=== PATIENT | male | born 1970 | race Caucasian/White ===

== ENCOUNTER 2017-12-16 11:17 | Emergency (ER) | payer OTHER, SELFPAY ==
[2017-12-16 11:18] VITALS: BP 156/96; PULSE 98; RESP 15; TEMP 36.6; O2SAT 97; BMI 41.8
[2017-12-16 11:47] LABS: Absolute Lymphocyte Count 2.44 X10^3/ul (0.83-4.51); Absolute Neutrophil Count 4.7 X10^3/uL (2.0-7.7); Basophil# 0.08 X10^3/uL; Eosinophil# 0.23 X10^3/uL; Eosinophils% 2.8 % (0-5); Hematocrit 46.7 % (40-54); Hemoglobin 16.3 g/dl (13.0-16.5); Lymphocyte # 2.44 X10^3/ul (4.0); Lymphocyte % 29.6 % (19-41); Mean Corp Hgb Conc 34.9 g/gl (32-36); Mean Corpuscular Hgb 27.9 pg (27.0-32.0); Mean Corpuscular Volume 79.8 fL (80-94); Mean Platelet Vol. 12.2 fl (6.2-12.0); Monocyte# 0.63 X10^3/uL; Monocyte% 7.6 % (0-10); Neutrophil # 4.73 X10^3/uL (2.7-7.7); Neutrophil % 57.4 % (47-70); Platelet Count 188 K/mm3 (150-450); RBC Distribution Width CV 14.1 % (11.6-14.6); RBC Distribution Width SD 41.3 fl (35.1-43.9); Red Blood Count 5.85 M/mm3 (4.6-6.2); White Blood Count 8.2 K/mm3 (4.4-11.0)
--- NOTE | 2017-12-16 11:47 | ED.VISSUMM ---
- ER Visit Summary Date of Service: 12/16/17 Chief Complaint: Right flank pain History of Present Illness: The patient is a 47 M who presents with right flank pain. Started 2 days ago. The pain is in the right flank and does not radiate. He has had hematuria for 2 weeks. He has history of kidney stones in the past and also has a history of Crohn's disease. He does not take any medications for any of these. He denies any fevers. Physical Examination: Vital signs reviewed. HEENT exam unremarkable. Heart is regular rate and rhythm without murmurs. Lungs are clear to auscultation. Abdomen is soft with tenderness in the right flank area. extremities reveal no edema. Skin exam normal. Neurologic exam normal. Test Results: Labs are unremarkable except for glucose of 154. Urinalysis reveals blood. CAT scan reveals a 7 mm right UPJ stone with mild hydronephrosis Emergency Department Course and Treatment: She was given Toradol and Zofran. Upon reevaluation he was sleeping and states his pain is much better. Patient will be discharged with short course of [place], naproxen and Zofran ODT. He will be given urology follow-up Treatment Plan: [] Disposition: Discharge Impression: Right ureterolithiasis This note was generated with [employer] dictation software. It may contain incorrect words, spelling, and punctuation that were not noted in review of the chart prior to signing ED Disposition - Plan for ED Patient: Chief Complaint: Flank Pain
[2017-12-16 11:48] LABS: POSITIVE COUNT NO; POSITIVE DIFFERENTIAL NO; POSITIVE MORPHOLOGY NO
[2017-12-16] MEDS: 0.9% Normal Saline 1,000 ML 250 ML IV (11:55)
[2017-12-16] MEDS: Ketorolac 30 MG/ML Syringe IV (11:55)
[2017-12-16] MEDS: Ondansetron 4 MG/2 ML Vial IV (11:55)
[2017-12-16 12:00] LABS: Anion Gap 11 (5-15); BUN 12 mg/dL (7-18); BUN/Creat Ratio 14.4 RATIO (10-20); Calcium,Total 9.2 mg/dL (8.5-10.1); Chloride 105 mmol/L (98-107); Creatinine, Serum 0.84 mg/dL (0.70-1.30); EST Glomerular Filtration Rate 106 mL/min (>60); Est Glom Filt Rate - Afr Amer 128 mL/min (>60); Estimated Creatinine Clearance 118.28 ml/min; Glucose 154 mg/dL (74-106); Potassium 3.9 mmol/L (3.5-5.1); Sodium Level 141 mmol/L (136-145)
[2017-12-16 12:11] LABS: Mucous, Urine 0 SEEN /hpf (<or=2+); White Blood Cells 0 SEEN /hpf (0-5)
[2017-12-16 12:12] LABS: Color, Urine Yellow (Yellow); Glucose, Dipstick 100 mg/dl (Normal); Ketone-Dipstick 5 mg/dl (Negative); Leukocyte Esterase-Dipstick 25 /ul (Negative); Nitrite-Dipstick Negative (Negative); Occult Blood-Urine 250 /ul (Negative); Protein-Dipstick 100 mg/dl (Negative); Urine Bilirubin Dipstick 1 mg/dL (Negative); Urine Clarity Cloudy (Clear); Urine Urobilinogen 8 mg/dl (Normal)
[2017-12-16 12:24] LABS: Bacteria RARE /hpf (None Seen); Red Blood Cells-Urine 25-50 SEEN /hpf (0-5); Squamous Epithelial Cells - UA 0-5 SEEN /hpf (0-5)
--- NOTE | 2017-12-16 13:29 | DCINST.ED_ITS ---
ED Disposition - Plan for ED Patient: Disposition: Home or Assisted Living Chief Complaint: Flank Pain Instructions: ED Stone Renal W Colic Prescriptions: Hydrocodone Bitart/Apap 5-325 [[place] 5MG-325MG] 1 tab PO Q6H PRN PRN 3 Days #10 tab PRN Reason: Pain Naproxen [Naprosyn] 500 mg PO BID PRN #20 tab Referrals: [facility] Doctor,Out of [Primary Care Provider] -
[2017-12-16 13:43] VITALS: BP 148/89; PULSE 87; RESP 18; O2SAT 98
== END 2017-12-16 13:44 | disposition home or self-care (01) ==
PROVIDERS: Emergency Provider Emergency Medicine
DX: N13.2 Hydronephrosis with renal and ureteral calculous obstruction (principal); K50.90 Crohn's disease, unspecified, without complications; Z87.442 Personal history of urinary calculi; Z72.0 Tobacco use; Z79.899 Other long term (current) drug therapy
CPT/HCPCS: 74176; 80048; 81001; 85025; 96361; 96374; 96375; 99284; J7030; A4216; J2405

== ENCOUNTER → 2017-12-19 09:06 | Outpatient (CLI) | payer OTHER, SELFPAY ==
[2017-12-19 10:03] LABS: Hemoglobin 14.7 g/dl (13.0-16.5); Mean Corp Hgb Conc 34.2 g/gl (32-36); Mean Corpuscular Hgb 27.8 pg (27.0-32.0); Mean Corpuscular Volume 81.4 fL (80-94); Mean Platelet Vol. 11.9 fl (6.2-12.0); Platelet Count 152 K/mm3 (150-450); RBC Distribution Width CV 13.8 % (11.6-14.6); RBC Distribution Width SD 40.8 fl (35.1-43.9); Red Blood Count 5.28 M/mm3 (4.6-6.2); Scan Indicated on CBC? Y/N NO; White Blood Count 6.8 K/mm3 (4.4-11.0)
[2017-12-19 10:37] LABS: Anion Gap 12 (5-15); BUN 12 mg/dL (7-18); BUN/Creat Ratio 14.1 RATIO (10-20); Calcium,Total 8.8 mg/dL (8.5-10.1); Chloride 105 mmol/L (98-107); Creatinine, Serum 0.85 mg/dL (0.70-1.30); EST Glomerular Filtration Rate 103 mL/min (>60); Est Glom Filt Rate - Afr Amer 124 mL/min (>60); Glucose 188 mg/dL (74-106); Potassium 3.9 mmol/L (3.5-5.1); Sodium Level 139 mmol/L (136-145)
== END ==
PROVIDERS: Family Provider Family Medicine; PCP Family Medicine; Visit Provider Urology
DX: N20.0 Calculus of kidney (principal)
CPT/HCPCS: 36415; 80048; 85027; 93005

== ENCOUNTER → 2018-01-02 08:51 | Outpatient (CLI) | payer OTHER, SELFPAY ==
[2018-01-02 11:00] LABS: Anion Gap 8 (5-15); BUN 10 mg/dL (7-18); BUN/Creat Ratio 9.6 RATIO (10-20); Chloride 102 mmol/L (98-107); Creatinine, Serum 1.04 mg/dL (0.70-1.30); EST Glomerular Filtration Rate 82 mL/min (>60); Est Glom Filt Rate - Afr Amer 99 mL/min (>60); Glucose 313 mg/dL (74-106); Potassium 4.1 mmol/L (3.5-5.1); Sodium Level 136 mmol/L (136-145)
[2018-01-08 11:18] LABS: Aldosterone, Serum 3.1 ng/dL (0.0-30.0); Renin, Plasma 6.083 ng/mL/hr (0.167-5.380)
== END ==
PROVIDERS: Family Provider Family Medicine; PCP Family Medicine; Visit Provider Urology
DX: E27.9 Disorder of adrenal gland, unspecified (principal); N20.0 Calculus of kidney
CPT/HCPCS: 36415; 74018; 80048; 82088; 84244

== ENCOUNTER → 2018-01-10 07:00 | Outpatient (CLI) | payer OTHER, SELFPAY | PROVIDERS: Family Provider Family Medicine; PCP Family Medicine; Visit Provider Urology | DX: E27.9 Disorder of adrenal gland, unspecified (principal) | CPT/HCPCS: 74170; Q9967 ==

== ENCOUNTER → 2018-02-05 08:30 | Outpatient (CLI) | payer OTHER, SELFPAY ==
[2018-02-10 07:07] LABS: Cortisol, Urinary Free 11 ug/L (Undefined); Epinephrine, 24Ur 6 ug/24 hr (0-20); Metanephrine, Ur 53 ug/L (Undefined); Norepinephrine, 24Ur 139 ug/24 hr (0-135); Normetanephrines, Ur 363 ug/L (Undefined)
[2018-02-10 14:01] LABS: Cortisol, Free 24Ur 32 ug/24 hr (0-50); Dopamine, 24Ur 422 ug/24 hr (0-510); Dopamine, UR 143 ug/L (Undefined); Epinephrine, Ur 2 ug/L (Undefined); Metanephrines, 24Ur 156 ug/24 hr (45-290); Norepinephrine, Ur 47 ug/L (Undefined); Normetanephrines, 24Ur 1071 ug/24 hr (82-500)
== END ==
LOC: LAB 08:32 → LABSPEC 08:33
PROVIDERS: Family Provider Family Medicine; PCP Family Medicine; Referring Provider Urology; Visit Provider Urology
DX: E27.9 Disorder of adrenal gland, unspecified (principal)
CPT/HCPCS: 81050; 82384; 82530; 83835

== ENCOUNTER 2019-06-30 10:36 | Emergency (ER) | payer OTHER, SELFPAY ==
[2019-06-30 10:38] VITALS: BP 133/87; PULSE 95; RESP 17; TEMP 36.6; O2SAT 99; BMI 32.5
--- NOTE | 2019-06-30 11:26 | RAD_ITS ---
STUDY: X-RAY - PELVIS AND LEFT HIP REASON FOR EXAM: Male, 49 years old. ATRAUMATIC HIP PAIN SINCE MONDAY TECHNIQUE: 3 views of the pelvis and hip. COMPARISON: None. FINDINGS: There is a non-specific bowel gas pattern. Normal visualized soft tissue structures. Normal bilateral iliac wings, sacroiliac joints and visualized sacrum. Normal bilateral superior and inferior pubic rami. Normal pubic symphysis. Normal bilateral ischial tuberosities. Normal visualized femoral head. Normal acetabulum. Normal hip joint. RAD/HIP, UNI W/ Pelvis 2-3 Views IMPRESSION: Normal x-ray examination of the pelvis and hip. Electronically Signed: Jon Murray DO at 12:05 EST Tel [phone], Service support ,
--- NOTE | 2019-06-30 11:29 | ED.VISSUMM ---
- ER Visit Summary Date of Service: 06/30/19 Chief Complaint: Atraumatic left hip pain History of Present Illness: The patient is a 49 M has a history of hypertension and type 2 diabetes, Crohn's disease and prior kidney stones. States since Monday he has had atraumatic left hip pain. Denies any type of fall or trauma no prior hip history. No prior hip surgery. He had a recent URI since he has been feeling better. Says the pain was hip is much worse with walking. Physical Examination: Middle-aged male no distress vital signs stable afebrile. H EENT exam unremarkable. Neck nontender. No lymphadenopathy. Lungs clear to auscultation bilaterally. Heart regular rhythm no murmur. Abdomen soft nontender normal bowel sounds no peritoneal signs. Remedies moves all 4. Neurovascular intact. Left hip is not specifically tender. He is able do flexion extension. He is able do internal/external rotation. There is no signs of septic joint. Is not red, warm or swollen. There is no deformity. There is no shortening or angulation. The knee, lower leg, ankle and foot are nontender neurovascular intact. No edema. Dorsi plantarflexion intact. Normal motor strength and sensation. Right lower extremities unremarkable. Back nontender. No SI tenderness. Neurologically is awake and alert. Test Results: Left hip and pelvis x-ray read by myself kier operator 3 view shows no acute abnormality. Emergency Department Course and Treatment: Patient treated with 2 p.o. [place] for pain Patient doing well on repeat exam. Went over x-rays with both he and his . He knows he needs follow-up. He may need an MRI if pains not improving. Treatment Plan: Limited [place] for pain. Tylenol and Motrin as needed. Disposition: Discharge Impression: Acute left hip pain of uncertain etiology History of diabetes This note was generated with [employer] dictation software. It may contain incorrect words, spelling, and punctuation that were not noted in review of the chart prior to signing ED Disposition - Plan for ED Patient: Referrals: Lyle Grady MD [Primary Care Provider] -
[2019-06-30] MEDS: HYDROcodone Bitartrate/Apap 5/325 Tablet PO (11:31)
--- NOTE | 2019-06-30 12:38 | ED.DEP ---
ED Disposition - Plan for ED Patient: Disposition: Home or Assisted Living Prescriptions: Hydrocodone/Acetaminophen [[place] 5-325 Tablet] 1 ea PO Q4H PRN PRN #20 tab PRN Reason: Pain Or Fever Prescription Printed Referrals: Lyle Grady MD [Primary Care Provider] - 3-5 Days if not improving Additional Instructions: Ice to your hip and Motrin for pain and inflammation. [place] for more severe pain. Follow-up with your doctor if not improving. Your x-ray of your hip today was normal however there could be other abnormalities of the hip that are not seen on a plain x-ray and you may need an MRI if not improving. Return to the ER if you develop redness, swelling at the right hip or fever.
[2019-06-30 13:05] VITALS: BP 127/87; PULSE 90; RESP 17; O2SAT 97
== END 2019-06-30 13:05 | disposition home or self-care (01) ==
PROVIDERS: Emergency Provider Emergency Medicine; PCP Family Medicine
DX: M25.552 Pain in left hip (principal); E11.9 Type 2 diabetes mellitus without complications; I10 Essential (primary) hypertension; K50.90 Crohn's disease, unspecified, without complications; Z87.442 Personal history of urinary calculi; Z72.0 Tobacco use; Z79.84 Long term (current) use of oral hypoglycemic drugs; Z79.899 Other long term (current) drug therapy
CPT/HCPCS: 73502; 99283

== ENCOUNTER 2019-07-11 11:41 | Emergency (ER) | payer OTHER, SELFPAY ==
[2019-07-11 11:42] VITALS: BP 137/103; PULSE 79; RESP 16; TEMP 36.9; O2SAT 98; BMI 32.1
--- NOTE | 2019-07-11 12:42 | MRI_ITS ---
STUDY: MRI LEFT HIP REASON FOR EXAM: Male, 49 years old. severe and worsening left hip pain, no trauma TECHNIQUE: Standardized fat and water weighted pulse sequences were obtained in all 3 orthogonal planes. COMPARISON: X-ray 06/30/2019 FINDINGS: Normal hip joint without articular joint space narrowing. Normal acetabulum. Normal labrum. Normal femoral head. Normal femoral neck and intratrochanteric region. Normal gluteus minimus, medius and iliopsoas tendons and distal insertions. There is no trochanteric, iliopsoas or iliopectineal bursitis. Normal superior and inferior pubic rami. Normal pubic symphysis. Normal ischial tuberosity. Normal origin of the hamstring tendons. Normal visualized iliac wing, sacroiliac joint, and sacral ala. Normal visualized soft tissue structures of the pelvis. MRI/Lower Ext Joint Only (Routine) IMPRESSION: Normal MRI of the hip. Electronically Signed: Earnest Madsen MD at 16:13 EST Tel , Service support ,
[2019-07-11] MEDS: Ondansetron 4 MG/2 ML Vial IV (13:22)
[2019-07-11] MEDS: HYDROmorphone 1 MG/ML Syringe IV (13:24)
[2019-07-11] MEDS: Ketorolac 30 MG/ML Syringe IV (13:26)
[2019-07-11 13:43] LABS: Absolute Lymphocyte Count 2.14 X10^3/uL (0.83-4.51); Absolute Neutrophil Count 6.2 X10^3/uL (2.0-7.7); Basophil# 0.03 X10^3/uL; Basophil% 0.3 % (0-1); Eosinophil# 0.08 X10^3/uL; Eosinophils% 0.9 % (0-5); Hematocrit 48.1 % (40-54); Hemoglobin 15.8 g/dL (13.0-16.5); Lymphocyte # 2.14 X10^3/ul (4.0); Lymphocyte % 23.4 % (19-41); Mean Corp Hgb Conc 32.8 g/dL (32-36); Mean Corpuscular Hgb 25.6 pg (27.0-32.0); Mean Corpuscular Volume 78.1 fL (80-94); Mean Platelet Vol. 11.6 fl (6.2-12.0); Monocyte# 0.67 X10^3/uL; Monocyte% 7.3 % (0-10); NRBC Flagged by Analyzer 0 % (0-5); Neutrophil # 6.18 X10^3/uL (2.7-7.7); Neutrophil % 67.7 % (47-70); Platelet Count 199 K/mm3 (150-450); RBC Distribution Width CV 14.2 % (11.6-14.6); RBC Distribution Width SD 39.3 fl (35.1-43.9); Red Blood Count 6.16 M/mm3 (4.6-6.2); White Blood Count 9.1 K/mm3 (4.4-11.0)
[2019-07-11 13:52] VITALS: BP 127/84; PULSE 66; RESP 18; O2SAT 97
[2019-07-11 13:55] LABS: BUN 19 mg/dL (7-18); Creatinine, Serum 0.88 mg/dL (0.70-1.30); Glucose 101 mg/dL (74-106)
[2019-07-11 13:56] LABS: Anion Gap 5 (5-15); BUN/Creat Ratio 21.6 RATIO (10-20); Calcium,Total 9.8 mg/dL (8.5-10.1); Chloride 109 mmol/L (98-107); EST Glomerular Filtration Rate 99 mL/min (>60); Est Glom Filt Rate - Afr Amer 119 mL/min (>60); Estimated Creatinine Clearance 110.53 ml/min; Potassium 3.7 mmol/L (3.5-5.1); Sodium Level 140 mmol/L (136-145)
[2019-07-11 14:00] LABS: Erythrocyte Sedimentation Rate 16 mm/hr (0-15)
--- NOTE | 2019-07-11 16:14 | ED.DCSUM_ITS ---
- ER Visit Summary Date of Service: 07/11/19 Chief Complaint: Atraumatic left hip pain for 2 weeks History of Present Illness: The patient is a 49 M past medical history of diabetes, Crohn's disease and prior kidney stones. Patient was seen here within the last 2 weeks for atraumatic hip pain. At that time had negative x-ray. States he was treated with [place] and his pain was getting better. It is gotten worse in the last day or so. He denies any type of fall, trauma or injury. No fever or chills. No redness or swelling. He is never had any type of a hip problem in the past before the last 2 weeks. He is never had any type of hip surgery. Physical Examination: Middle-aged male complaining of pain. Vital signs are stable afebrile. He has a normal heart rate of 79. He is afebrile. H EENT exam unremarkable. Neck nontender no lymphadenopathy. Lungs clear to auscul tation bilaterally. Heart regular rhythm no murmur. Abdomen soft nontender normal bowel sounds no peritoneal signs. Extremities moves all 4. Neurovascular intact specifically the left hip there is no redness or warmth. No cellulitis. No swelling. No bruising or signs of trauma. There is no gross deformity to left hip. With movement of left hip either actively or passively complains of more pain. There is no signs of septic joint. No signs of dislocation or fracture. The thigh, left knee, left lower leg ankle and foot are nontender. There is no swelling. Calf is nontender. There is no cords. Left foot is neurovascular intact with normal dorsi and plantar flexion. Normal DP pulse. He is able to wiggle his toes. Has normal touch sensation. Back is nontender. Neurologically is awake and alert with no focal motor deficits. Test Results: CBC normal white count 9. Hemoglobin 15. Chemistries normal. Normal creatinine gap. Sed rate normal at 16. Due to the amount of pain the patient was having and having prior negative x-rays I did obtain an MRI of his left hip. The MRI was read by the radiologist as normal. I reviewed it myself. Emergency Department Course and Treatment: Patient treated with IV Dilaudid, Zofran and Toradol. Exam at 1618 patient is doing well. I went over all his test results. Explained to him all his results including his MRI were normal. Explained both he and his he may be having pain but I do not have a specific reason. It did not appear to be infectious, vascular or orthopedic. I explained that I would not continue to use narcotics for this. But be happy to write him for Toradol. Treatment Plan: Toradol for pain. Ice to the area. Follow-up with his primary care physician and/or Dr. Jarrod Mohan of orthopedics. Disposition: discharge Impression: Acute left atraumatic hip pain of uncertain etiology This note was generated with [employer] dictation software. It may contain incorrect words, spelling, and punctuation that were not noted in review of the chart prior to signing ED Disposition - Plan for ED Patient: Referrals: Lyle Grady MD [Primary Care Provider] -
--- NOTE | 2019-07-11 16:37 | ED.DEP ---
ED Disposition - Plan for ED Patient: Disposition: Home or Assisted Living Prescriptions: Ketorolac [Toradol] 10 mg PO Q6H #14 tab Prescription Printed Referrals: Lyle Grady MD [Primary Care Provider] - As Needed Jarrod Mohan MD [STAFF PHYSICIAN] - As soon as possible Additional Instructions: Toradol for pain. Follow-up with your doctor or the orthopedic surgeon Dr. Jarrod Mohan for further evaluation. I do not have a specific cause for your hip pain. Your MRI is normal. As is your blood work.
[2019-07-11 17:09] VITALS: BP 142/64; PULSE 70; RESP 16; O2SAT 98
== END 2019-07-11 17:09 | disposition home or self-care (01) ==
PROVIDERS: Emergency Provider Emergency Medicine; PCP Family Medicine
DX: M25.552 Pain in left hip (principal); E11.9 Type 2 diabetes mellitus without complications; K50.90 Crohn's disease, unspecified, without complications; Z87.442 Personal history of urinary calculi; Z72.0 Tobacco use; Z79.84 Long term (current) use of oral hypoglycemic drugs; Z79.899 Other long term (current) drug therapy
CPT/HCPCS: 73721; 80048; 85025; 85652; 96374; 96375; 99283; J7030; A4216; J2405

== ENCOUNTER → 2019-09-06 | Outpatient (CLI) | payer OTHER, SELFPAY ==
--- NOTE | 2019-09-06 16:36 | CT_ITS ---
STUDY: CT ABDOMEN WITH AND WITHOUT CONTRAST REASON FOR EXAM: Male, 49 years old. Other specified disorder of the kidney. RADIATION DOSAGE (If Supplied By Facility): CTDIvol = ( 29.26 ) mGy, DLP = ( 2155.50 ) mGycm TECHNIQUE: Transaxial images were obtained pre and post I.V. administration of IV 100mL Isovue-300, and without oral contrast. Sagittal and coronal images were reconstructed. Individualized dose optimization techniques were used for this CT. COMPARISON: CT of the abdomen, January 10, 2018. FINDINGS: The visualized lung bases are unremarkable. The visualized portions of the heart are within normal limits. Normal liver. There is a single 4 mm laminated gallstone in the gallbladder fundus. There is no inflammatory change. There is no biliary ductal dilatation or choledocholithiasis. Normal spleen. Normal pancreas. Normal right adrenal gland. There is a 3.1 x 2.1 x 2.9 cm low-attenuation mass in left adrenal gland suggesting adenoma. There is a fat density mass in the upper pole of the right kidney shows appearance of a defect in the cortex filled with fat. This measures approximately 1.4 x 1.4 x 1.0 cm there is no evidence of internal enhancement. Also seen within the right kidney are several cortical cysts unchanged from prior study. There are also nonobstructing calculi in the lower pole calyces unchanged in size and number. The largest measures 3 mm. Minimal cortical loss is seen in the right lower pole. There is no hydronephrosis. Normal visualized right ureter. There is a tiny calcification measuring 1 mm in the upper pole calyx of the left kidney. Stable calcifications are seen in the mid and lower pole. The largest measures 3 mm. There is a small stable renal cysts. There is no hydronephrosis. Normal visualized left ureter. Normal visualized stomach. Normal visualized small intestine. Normal visualized colon. The appendix is not included. There is diffuse atherosclerotic calcification of the abdominal aorta with elongation and tortuosity, but without a demonstrated aneurysm. Normal inferior vena cava. Normal retroperitoneum. Normal abdominal wall. Normal osseous structures. CT/Abdomen W/WO IV Contrast IMPRESSION: 1. Resolution of fatty infiltration of the liver seen on the previous examination. 2. Otherwise stable findings when compared to January 10, 2018. Electronically Signed: Alok Jerome DO at 16:27 EDT Tel [phone], Service support ,
[2019-09-06 16:50] LABS: CREATININE FINGERSTICK 0.8 mg/dL (0.70-1.30)
== END | disposition home or self-care (01) ==
LOC: MRI 16:35
PROVIDERS: PCP Family Medicine; Referring Provider Urology; Visit Provider Urology
DX: N28.89 Other specified disorders of kidney and ureter (principal)
CPT/HCPCS: 74170; Q9967

== ENCOUNTER 2021-05-02 09:11 | Inpatient (IN) | payer OTHER, SELFPAY ==
[2021-05-02] VITALS (15 sets, daily range): BP systolic 122–155; BP diastolic 83–122; PULSE 103–123; RESP 18–36; TEMP 36.7–38.4; O2SAT 88–96; BMI 38.2; BMI 37.8
--- NOTE | 2021-05-02 09:24 | EKG12_ITS ---
Test Reason : SOB Blood Pressure : / mmHG Vent. Rate : 122 BPM Atrial Rate : 122 BPM P-R Int : 136 ms QRS Dur : 078 ms QT Int : 300 ms P-R-T Axes : 020 -17 048 degrees QTc Int : 427 ms Sinus tachycardia Inferior infarct , age undetermined Abnormal ECG Confirmed by FLORIN HONG, KOBI ([id number]), advertising editor KARLA LUNA ([id number]) on 05/04/2021 9:55:03 AM Referred By: KRIS Confirmed By:KOBI CATHERINE MD
--- NOTE | 2021-05-02 09:24 | CT_ITS ---
STUDY: CTA CHEST REASON FOR EXAM: Male, 50 years old. pulmonary embolism RADIATION DOSAGE (If Supplied By Facility): CTDIvol = ( 11.47 ) mGy, DLP = ( 522.44 ) mGycm TECHNIQUE: The examination was performed with the intravenous administration of IV 100mL Isovue-370. Post-processing of the angiographic images was performed, with multiplanar reformation and 3D reconstruction. Individualized dose optimization techniques were used for this CT. COMPARISON: Chest x-ray earlier today FINDINGS: Normal enhancement of the main pulmonary artery and right and left pulmonary arteries. Normal enhancement of the bilateral peripheral pulmonary arteries. There is no demonstrated pulmonary embolism. Normal thoracic aorta and visualized great vessels. There is no demonstrated aortic dissection. Normal heart and pericardium. Normal mediastinum. Normal hilar regions. Normal visualized trachea and bronchi. The lungs are well expanded. Bilateral patchy groundglass opacities consistent with moderate subsegmental atelectasis or pneumonitis. Normal pleura. Elevated right hemidiaphragm. Normal chest wall structures. Normal osseous structures. Adenoma the left adrenal gland. CT/CTA Chest W/WO Contrast IMPRESSION: 1. No CT evidence of pulmonary embolism. 2. Moderate subsegmental atelectasis or pneumonitis. Commonly reported imaging atkins of Covid 19 pneumonia are present. Other processes such as influenza pneumonia and organizing pneumonia as can be seen in drug toxicity and connective tissue disease can cause a similar imaging pattern. Electronically Signed: Earnest Madsen MD at 11:37 EST Tel , Service support ,
--- NOTE | 2021-05-02 09:25 | EDS_ITS ---
HPI History of Present Illness Chief Complaint: Shortness of Breath Informant: patient and spouse/S.O. Narrative Narrative: 50-year-old male presenting to the emergency department the chief complaint of dyspnea. Patient began to experience fevers cough diarrhea chills fatigue 6 days ago. He is not Covid vaccinated and states that vaccines tend to set off his Crohn's disease. He is not currently on any therapy for Crohn's. He does note diarrhea. He notes decreased appetite. No rashes. No chest pain. He has been take Tylenol/Motrin for fever. states that she checked his pulse oximeter and was noted to be low this morning. He had been running about 90%. [facility] Medical History Acute Crohn's disease Diabetes Home Medications NK 05/02/21 [History Last Taken Unknown] Allergy/AdvReac Type Severity Reaction Status Date / Time No Known Allergies Allergy Verified 05/02/21 09:17 Surgical History Previous back surgery Social History (Updated 05/02/21 @ 09:[address] Lucien Murrieta DO) current gender identity: male Smoking Status: Current every day smoker tobacco type: cigarettes ROS ROS ED Constitutional Constitutional ED: Reports chills and fever(s); Denies weight loss Eyes Eyes: Denies change in vision or diplopia ENT ENT ED: Reports sore throat; Denies ear pain or rhinorrhea Cardiovascular Cardiovascular: Denies chest pain, orthopnea, palpitations or racing heartbeat Respiratory/Chest Respiratory/Chest: Reports cough, dyspnea and dyspnea on exertion; Denies orthopnea Gastrointestinal Gastrointestinal: Reports diarrhea and nausea; Denies abdominal pain or vomiting Genitourinary Genitourinary ED: Denies dysuria, hematuria or urinary frequency Musculoskeletal Musculoskeletal: Reports myalgias; Denies arthralgias Integumentary Denies abscess or rash Neurologic Neurologic: Reports headache(s); Denies weakness Psychiatric Psychiatric: Denies anxiety, depression, suicidal ideation or suicidal thoughts Endocrine Endocrinology: Denies polydipsia, polyphagia or polyuria Allergic/Immunologic Allergic/Immunologic ED: Denies mouth swelling, tongue swelling or urticaria EXAM Physical Exam Const Vital Signs: 05/02/21 09:12 05/02/21 09:14 05/02/21 09:29 Temperature 101.1 F H 101.1 F H Temperature Source Oral Oral Pulse Rate 123 H 122 H Respiratory Rate 26 H 26 H Respiratory Effort Respiratory Pattern Blood Pressure 155/122 H 155/122 H Blood Pressure Mean 133 133 Pulse Ox 88 88 94 Oxygen Delivery Method Room Air Nasal Cannula Nasal Cannula Oxygen Flow Rate (L/min) 3 05/02/21 09:30 05/02/21 09:39 05/02/21 10:00 Temperature Temperature Source Pulse Rate 120 H 118 H Respiratory Rate 27 H 36 H Respiratory Effort Short of Breath Respiratory Pattern Tachypnea Blood Pressure 132/93 H 142/92 H Blood Pressure Mean 106 108 Pulse Ox 94 93 Oxygen Delivery Method Nasal Cannula Nasal Cannula Nasal Cannula Oxygen Flow Rate (L/min) 3 3 3 05/02/21 11:14 05/02/21 11:19 Temperature Temperature Source Pulse Rate Respiratory Rate Respiratory Effort Respiratory Pattern Blood Pressure Blood Pressure Mean Pulse Ox 89 93 Oxygen Delivery Method Nasal Cannula Nasal Cannula Oxygen Flow Rate (L/min) 3 4 Positive well nourished and well developed General Appearance ED: well developed HEENT Reports normocephalic, head/scalp atraumatic, TM's clear and moist mucous membranes Negative for trauma Tympanic Membrane ED: Yes TM's clear Eyes PERRL and EOMs intact bilaterally Neck no lymphadenopathy, supple and no JVD Resp normal respiratory effort and clear to auscultation bilaterally Cardio regular rate and no murmurs Rate: tachycardic GI normal to inspection, nondistended, normoactive bowel sounds and non-tender Palpation: soft Back/Spine no CVA tenderness and normal ROM Extremity normal to inspection General Extremety ED: Negative for edema General Extremity: Negative for edema Neuro oriented x3 and CN's II-XII intact bilaterally Sensorium / Orientation: alert Motor Exam: strength 5/5 throughout Psych mental status grossly normal Mood & Affect: Negative for depressed or tearful Skin no rashes or lesions noted and no wounds MDM MDM MDM Narrative Medical decision making narrative: CTA of the chest was obtained which does not demonstrate any pulmonary embolism. Does demonstrate bilateral pneumonitis consistent with his COVID-19 diagnosis. He is currently requiring 4 L nasal cannula and is still tachypneic around 30. Patient received Tylenol for fever and a dose of Decadron. Plan is admission. Lab Data Attestation: I reviewed the patient's lab results. Labs: Laboratory Results - last 24 hr 05/02/21 05/02/21 05/02/21 09:20 09:20 09:20 WBC 6.6 RBC 6.43 H Hgb 17.5 H Hct 51.8 MCV 80.6 MCH 27.2 MCHC 33.8 RDW Std Deviation 39.8 RDW Coeff of Abdias 13.6 Plt Count 148 L MPV 11.6 Immature Gran % (Auto) 0.600 Neut % (Auto) 66.0 Lymph % (Auto) 23.6 Tensas % (Auto) 7.2 Eos % (Auto) 2.1 Baso % (Auto) 0.5 Absolute Neuts (auto) 4.3 Absolute Lymphs (auto) 1.55 Nucleated RBC % 0 Fibrinogen 688 H D-Dimer Quant (PE/DVT) 0.97 H* Sodium 134 L Potassium 3.6 Chloride 101 Carbon Dioxide 21.0 Anion Gap 12 BUN 16 Creatinine 1.01 Estim Creat Clear Calc 95.26 Est GFR (MDRD) Af Amer 101 Est GFR (MDRD) Non-Af 84 BUN/Creatinine Ratio 15.8 Glucose 135 H Lactic Acid Calcium 8.4 L Total Bilirubin 0.70 AST 55 H ALT 48 Alkaline Phosphatase 77 Lactate Dehydrogenase 317 H Total Creatine Kinase 139 Troponin I High Sens 13 C-React Prot Ext Range 80.40 H B-Natriuretic Peptide Total Protein 8.2 Albumin 3.5 Globulin 4.7 H Albumin/Globulin Ratio 0.7 L Procalcitonin 05/02/21 05/02/21 05/02/21 09:20 09:20 09:34 WBC RBC Hgb Hct MCV MCH MCHC RDW Std Deviation RDW Coeff of Abdias Plt Count MPV Immature Gran % (Auto) Neut % (Auto) Lymph % (Auto) [place] % (Auto) Eos % (Auto) Baso % (Auto) Absolute Neuts (auto) Absolute Lymphs (auto) Nucleated RBC % Fibrinogen D-Dimer Quant (PE/DVT) Sodium Potassium Chloride Carbon Dioxide Anion Gap BUN Creatinine Estim Creat Clear Calc Est GFR (MDRD) Af Amer Est GFR (MDRD) Non-Af BUN/Creatinine Ratio Glucose Lactic Acid 1.4 Calcium Total Bilirubin AST ALT Alkaline Phosphatase Lactate Dehydrogenase Total Creatine Kinase Troponin I High Sens C-React Prot Ext Range B-Natriuretic Peptide 13.0 Total Protein Albumin Globulin Albumin/Globulin Ratio Procalcitonin 0.16 H Radiography Diagnostic Testing: Clinical Impression(s) from Imaging Studies Chest CTA 05/02/21 09:24 IMPRESSION: 1. No CT evidence of pulmonary embolism. 2. Moderate subsegmental atelectasis or pneumonitis. Commonly reported imaging atkins of Covid 19 pneumonia are present. Other processes such as influenza pneumonia and organizing pneumonia as can be seen in drug toxicity and connective tissue disease can cause a similar imaging pattern. Electronically Signed: Earnest Madsen MD at 11:37 EST Tel , Service support , Chest X-Ray 05/02/21 09:28 IMPRESSION: Bilateral patchy pneumonia. Electronically Signed: Earnest Madsen MD at 10:44 EST Tel , Service support , EKG Initial EKG: Attestation: I personally reviewed and interpreted this EKG as follows: Comments: Sinus tachycardia with a ventricular rate of 122 bpm Discharge Plan Dx/Rx/DC Orders Clinical Impression: COVID-19, Acute hypoxemic respiratory failure due to COVID-19 Disposition Disposition: [facility]
--- NOTE | 2021-05-02 09:28 | RAD_ITS ---
STUDY: X-RAY CHEST REASON FOR EXAM: Male, 50 years old. cough TECHNIQUE: Single AP portable view of the chest. COMPARISON: None. FINDINGS: Patchy alveolar opacities in both lungs consistent with bilateral pneumonia. Elevated right hemidiaphragm. Normal size heart. Normal mediastinum and nanci. Normal visualized pulmonary arteries. Normal visualized aortic arch and descending thoracic aorta. Normal visualized thoracic spine. Normal visualized ribs, clavicles, and shoulders. There is no demonstrated abnormality of the visualized soft tissue structures of the upper abdomen. RAD/Chest 1 View (Portable) IMPRESSION: Bilateral patchy pneumonia. Electronically Signed: Earnest Madsen MD at 10:44 EST Tel , Service support ,
[2021-05-02] MEDS: Acetaminophen 500 MG Tablet 1000 MG PO (09:32)
[2021-05-02 09:35] LABS: Absolute Lymphocyte Count 1.55 X10^3/uL (0.83-4.51); Absolute Neutrophil Count 4.3 X10^3/uL (2.0-7.7); Basophil# 0.03 X10^3/uL; Basophil% 0.5 % (0-1); Eosinophil# 0.14 X10^3/uL; Eosinophils% 2.1 % (0-5); Hematocrit 51.8 % (40-54); Hemoglobin 17.5 g/dL (13.0-16.5); Lymphocyte # 1.55 X10^3/ul (0.83-4.51); Lymphocyte % 23.6 % (19-41); Mean Corp Hgb Conc 33.8 g/dL (32-36); Mean Corpuscular Hgb 27.2 pg (27.0-32.0); Mean Corpuscular Volume 80.6 fL (80-94); Mean Platelet Vol. 11.6 fl (6.2-12.0); Monocyte# 0.47 X10^3/uL; Monocyte% 7.2 % (0-10); NRBC Flagged by Analyzer 0 % (0-5); Neutrophil # 4.34 X10^3/uL (2.7-7.7); Platelet Count 148 K/mm3 (150-450); RBC Distribution Width CV 13.6 % (11.6-14.6); RBC Distribution Width SD 39.8 fl (35.1-43.9); Red Blood Count 6.43 M/mm3 (4.6-6.2); White Blood Count 6.6 K/mm3 (4.4-11.0)
[2021-05-02 09:52] LABS: D-Dimer Quantitative (DVT/PE) 0.97 FEU/ug/m (0.27-0.49)
[2021-05-02 09:54] LABS: ALB/GLOB Ratio 0.7 RATIO (0.9-2.4); AST(SGOT) 55 U/L (15-37); Alanine Aminotransfer ALT/SGPT 48 U/L (16-61); Albumin, Serum 3.5 g/dL (3.2-5.0); Alkaline Phosphatase 77 U/L (45-117); Anion Gap 12 (5-15); BUN 16 mg/dL (7-18); BUN/Creat Ratio 15.8 RATIO (10-20); CPK Total, Creatine Kinase 139 U/L (39-308); Calcium,Total 8.4 mg/dL (8.5-10.1); Chloride 101 mmol/L (98-107); Creatinine, Serum 1.01 mg/dL (0.70-1.30); EST Glomerular Filtration Rate 84 mL/min (>60); Est Glom Filt Rate - Afr Amer 101 mL/min (>60); Estimated Creatinine Clearance 95.26 ml/min; Globulin 4.7 g/dL (2.2-4.2); Glucose 135 mg/dL (74-106); LDH 317 U/L (87-241); Potassium 3.6 mmol/L (3.5-5.1); Protein, Total 8.2 g/dL (6.4-8.2); Sodium Level 134 mmol/L (136-145); Troponin-I HS 13 pg/mL (3.0-78.0)
[2021-05-02 09:59] LABS: Fibrinogen 688 mg/dl (203-444); Lactic Acid 1.4 mmol/L (0.4-1.9)
[2021-05-02 10:07] LABS: Procalcitonin 0.16 ng/mL (0.00-0.09)
--- NOTE | 2021-05-02 12:39 | PCM.HP.STD ---
HPI - General General Date of Admission: 05/02/21 Date of Service: 05/02/21 Chief Complaint: Shortness of breath ongoing for 6 days HPI Narrative ANNABELLE YANG, is a 50 M who presents with shortness of breath ongoing for 6 days. Patient is unvaccinated. He has a history of Crohn's disease, not on medications. He admits to feeling unwell, fatigue, subjective fevers, short of breath. His vitals in the ED were stable except for oxygen sat of 89% on room air that improved to 96% on 4 L. His admitting blood work was remarkable for hemoglobin of 17.5. His D-dimer was elevated. Creatinine was 1.01, BUN was 16. No LFTs derangements. His chest x-ray showed bilateral patchy pneumonia. CTA of the chest shows moderate subsegmental atelectasis or pneumonitis. [facility] Medical History Acute Crohn's disease Diabetes Home Medications NK 05/02/21 [History Last Taken Unknown] Allergy/AdvReac Type Severity Reaction Status Date / Time No Known Allergies Allergy Verified 05/02/21 09:17 Family History (Updated 05/02/21 @ 15:[address] Deysi Naik MD) Mother CAD (coronary artery disease) Father CAD (coronary artery disease) Surgical History Previous back surgery Social History (Updated 05/02/21 @ 15:[address] Deysi Naik MD) household members: spouse current gender identity: male Smoking Status: Current every day smoker tobacco type: cigarettes alcohol intake: current substance use type: does not use ROS ROS Narrative Constitutional: Reports: Malaise, Weakness, Fatigue, fever and chills. Denies: Night Sweats, Weight Change Eyes: Denies: Blurred vision, Cataracts, Conjunctivae Inflammation, Pain, Redness, Vision Change HEENT: Denies: Difficulty Hearing, Difficulty Swallowing, Head Aches, Hearing Changes, Sinus Congestion, Sinus Drainage Cardiovascular: Denies: Chest Pain, Orthopnea, Palpitations Respiratory: Admits to cough, Shortness of breath at rest, Sputum production Gastrointestinal: Denies: Abdominal Pain, Nausea, Vomiting Genitourinary: Denies: Dysuria Musculoskeletal: Denies: Joint Pain, Joint stiffness, Joint swelling, Joint Tenderness Skin: Denies: Rash, Wounds Neurological: Denies: Numbness, Tingling, Focal weakness Vital Signs Vital Signs Vital Signs: 05/02/21 09:12 05/02/21 09:14 05/02/21 09:29 Temperature 101.1 F H 101.1 F H Temperature Source Oral Oral Pulse Rate 123 H 122 H Respiratory Rate 26 H 26 H Respiratory Effort Respiratory Pattern Blood Pressure 155/122 H 155/122 H Blood Pressure Mean 133 133 Pulse Ox 88 88 94 Oxygen Delivery Method Room Air Nasal Cannula Nasal Cannula Oxygen Flow Rate (L/min) 3 05/02/21 09:30 05/02/21 09:39 05/02/21 10:00 Temperature Temperature Source Pulse Rate 120 H 118 H Respiratory Rate 27 H 36 H Respiratory Effort Short of Breath Respiratory Pattern Tachypnea Blood Pressure 132/93 H 142/92 H Blood Pressure Mean 106 108 Pulse Ox 94 93 Oxygen Delivery Method Nasal Cannula Nasal Cannula Nasal Cannula Oxygen Flow Rate (L/min) 3 3 3 05/02/21 11:00 05/02/21 11:14 05/02/21 11:19 Temperature 99.1 F Temperature Source Oral Pulse Rate 111 H Respiratory Rate 34 H Respiratory Effort Respiratory Pattern Blood Pressure 125/95 H Blood Pressure Mean 105 Pulse Ox 92 89 93 Oxygen Delivery Method Nasal Cannula Nasal Cannula Nasal Cannula Oxygen Flow Rate (L/min) 4 3 4 05/02/21 12:00 Temperature 98.5 F Temperature Source Oral Pulse Rate 104 H Respiratory Rate 27 H Respiratory Effort Respiratory Pattern Blood Pressure 122/83 H Blood Pressure Mean 96 Pulse Ox 92 Oxygen Delivery Method Nasal Cannula Oxygen Flow Rate (L/min) 4 Weight Weight: 124.6 kg Body Mass Index (BMI) 38.2 Physical Exam Narrative Physical exam: General: Alert, Oriented x3, Cooperative, No apparent distress, Well developed, on 4 L of oxygen HEENT: Atraumatic Oral: Moist Mucosa Neck: Supple Lungs: Diminished to auscultation Cardiovascular: HS I+II, regular, no murmurs Abdomen: Bowel Sounds Present, Soft, Non Tender Extremities: No edema Results Lab / Micro Data Result Diagrams: 05/02/21 09:20 05/02/21 09:20 Labs: Laboratory Results - last 24 hr 05/02/21 09:20: WBC 6.6, RBC 6.43 H, Hgb 17.5 H, Hct 51.8, MCV 80.6, MCH 27.2, MCHC 33.8, RDW Std Deviation 39.8, RDW Coeff of Abdias 13.6, Plt Count 148 L, MPV 11.6, Immature Gran % (Auto) 0.600, Neut % (Auto) 66.0, Lymph % (Auto) 23.6, [place] % (Auto) 7.2, Eos % (Auto) 2.1, Baso % (Auto) 0.5, Absolute Neuts (auto) 4.3, Absolute Lymphs (auto) 1.55, Nucleated RBC % 0 05/02/21 09:20: Fibrinogen 688 H, D-Dimer Quant (PE/DVT) 0.97 H* 05/02/21 09:20: Sodium 134 L, Potassium 3.6, Chloride 101, Carbon Dioxide 21.0, Anion Gap 12, BUN 16, Creatinine 1.01, Estim Creat Clear Calc 95.26, Est GFR (MDRD) Af Amer 101, Est GFR (MDRD) Non-Af 84, BUN/Creatinine Ratio 15.8, Glucose 135 H, Calcium 8.4 L, Total Bilirubin 0.70, AST 55 H, ALT 48, Alkaline Phosphatase 77, Lactate Dehydrogenase 317 H, Total Creatine Kinase 139, Troponin I High Sens 13, C-React Prot Ext Range 80.40 H, Total Protein 8.2, Albumin 3.5, Globulin 4.7 H, Albumin/Globulin Ratio 0.7 L 05/02/21 09:20: Lactic Acid 1.4 05/02/21 09:20: B-Natriuretic Peptide 13.0 05/02/21 09:34: Procalcitonin 0.16 H Micro: Microbiology 05/02/21 09:25 Nasal Secretion SARS-CoV-2 Antigen (Rapid) - Final SARS-CoV-2 (COVID 19) Radiology Impression Chest CTA 05/02/21 09:24 IMPRESSION: 1. No CT evidence of pulmonary embolism. 2. Moderate subsegmental atelectasis or pneumonitis. Commonly reported imaging atkins of Covid 19 pneumonia are present. Other processes such as influenza pneumonia and organizing pneumonia as can be seen in drug toxicity and connective tissue disease can cause a similar imaging pattern. Electronically Signed: Earnest Madsen MD at 11:37 EST Tel , Service support , Chest X-Ray 05/02/21 09:28 IMPRESSION: Bilateral patchy pneumonia. Electronically Signed: Earnest Madsen MD at 10:44 EST Tel , Service support , Assessment & Plan Assessment/Plan (1) JAY (obstructive sleep apnea): (2) Pneumonia due to severe acute respiratory syndrome coronavirus 2 (SARS-CoV-2): (3) Acute hypoxemic respiratory failure due to COVID-19: PLAN: 1. Acute hypoxic respiratory failure secondary to acute COVID-19 pneumonia Patient is unvaccinated; comes in with a 6-day symptoms of Covid Currently on 4 L of oxygen Chest x-ray and CT of the chest showed bilateral patchy infiltrates; negative for acute PE Started on IV Decadron, continue on Decadron and remdesivir Encourage use of incentive spirometer 2. JAY, on CPAP,? Compliance, continue same 3. Type II DM, not on medications, continue with insulin sliding scale Anticipate uncontrolled blood sugars with use of Decadron 4. Obesity, BMI 37.8, lifestyle modification recommended 5. DVT prophylaxis?Lovenox subcu I discussed and explained in details the various types of CODE STATUS-full code, DNR CCA, DNR CC. Patient chose to be full code. He wants all aggressive measures to keep him alive. Time spent discussing CODE STATUS 16 minutes Charges/Coding Visit Charges Inpatient E&M: 20978 Init Hosp L3 Procedures Hospitalists Procedures: 13731 Advncd Care Plan 30 Min
--- NOTE | 2021-05-02 13:40 | PCS.PANDOC ---
PANDEMIC DOCUMENTATION INITIATED: Date: 12/21/2020 Time: 190
[2021-05-02] MEDS: dexAMETHasone 10 MG/ML Vial 6 MG IV (16:38)
[2021-05-02] MEDS: Insulin Lispro 100 UNIT/ML INSULN.PEN SC ×2 (17:26→20:54)
[2021-05-02 17:35] LABS: Bedside Glucose 155 mg/dL (70-110)
[2021-05-02] MEDS: Enoxaparin 30 MG/0.3 ML Syringe SC (20:55)
[2021-05-02 21:50] LABS: Bedside Glucose 260 mg/dL (70-110)
[2021-05-03] VITALS (9 sets, daily range): BP systolic 106–133; BP diastolic 57–80; PULSE 100–113; RESP 18–22; TEMP 36.4–37.7; O2SAT 92–94
[2021-05-03 06:56] LABS: Absolute Lymphocyte Count 1.31 X10^3/uL (0.83-4.51); Absolute Neutrophil Count 3.8 X10^3/uL (2.0-7.7); Basophil# 0.02 X10^3/uL; Basophil% 0.4 % (0-1); Hematocrit 49.5 % (40-54); Hemoglobin 16.7 g/dL (13.0-16.5); Lymphocyte # 1.31 X10^3/ul (0.83-4.51); Lymphocyte % 23.4 % (19-41); Mean Corp Hgb Conc 33.7 g/dL (32-36); Mean Platelet Vol. 11.2 fl (6.2-12.0); Monocyte# 0.44 X10^3/uL; Monocyte% 7.8 % (0-10); NRBC Flagged by Analyzer 0 % (0-5); Neutrophil # 3.81 X10^3/uL (2.7-7.7); Neutrophil % 67.9 % (47-70); Platelet Count 130 K/mm3 (150-450); RBC Distribution Width CV 13.8 % (11.6-14.6); RBC Distribution Width SD 40.1 fl (35.1-43.9); Red Blood Count 6.19 M/mm3 (4.6-6.2); White Blood Count 5.6 K/mm3 (4.4-11.0)
[2021-05-03 07:16] LABS: ALB/GLOB Ratio 0.7 RATIO (0.9-2.4); AST(SGOT) 47 U/L (15-37); Alanine Aminotransfer ALT/SGPT 40 U/L (16-61); Albumin, Serum 3.2 g/dL (3.2-5.0); Alkaline Phosphatase 66 U/L (45-117); Anion Gap 6 (5-15); BUN 15 mg/dL (7-18); Calcium,Total 8.6 mg/dL (8.5-10.1); Chloride 102 mmol/L (98-107); Creatinine, Serum 0.84 mg/dL (0.70-1.30); EST Glomerular Filtration Rate 104 mL/min (>60); Est Glom Filt Rate - Afr Amer 126 mL/min (>60); Estimated Creatinine Clearance 114.54 ml/min; Globulin 4.6 g/dL (2.2-4.2); Glucose 141 mg/dL (74-106); Potassium 4.2 mmol/L (3.5-5.1); Protein, Total 7.8 g/dL (6.4-8.2); Sodium Level 136 mmol/L (136-145)
[2021-05-03 08:00] LABS: Bedside Glucose 122 mg/dL (70-110)
--- NOTE | 2021-05-03 10:40 | CASEMGMT ---
DENIZ GRANDE Assessment: Face to Face with pt for initial transition planning/care coordination assessment. DENIZ GRANDE introduced self and role at [facility], pt voices understanding and consents to assessment. Pt is A/O x4 and answers all questions appropriately at this time. Pt lying in bed with O2 on in no distress. Care providers, pharmacy, and demographics verified/updated. Admitting Dx: resp failure/COVID PCP: [facility] Specialists: Pt denies. Preferred Pharmacy: [facility] Insurance: [employer] Prescription Benefit: yes LW/HPOA: Pt denies having a LW/DPOA and denies need for info regarding AD. LNOK: [facility], Living Arrangements: Pt lives with and dtr in a split level house with 5-6 steps to enter. Pt reports he is I in ADL's and denies concerns at home. Transportation: Pt drives self and denies concerns with transportation. DME/HHC/SNF: Pt has a BGM at home with supplies (lancets and strips). Pt states he checks his blood sugars 2-3x/wk. Pt has a CPAP at home also. Pt has had HHC in the past but is unsure of which company he used. Pt denies SNF stays. Pt was first tested for COVID at [facility]. Pt is able to quarantine from his family using separate bedroom and bathroom. Provided pt with a local in network list of DME companies should pt need home O2, pt denies preference. Pt states no concerns with going home at time of dc. Pt states no further concerns/needs. CM to follow. Advised pt to ask CM if any further question/concerns/needs arise, voices understanding. Pt Goal: Home Plan: Home
[2021-05-03] MEDS: Lisinopril 10 MG Tablet PO (10:41)
[2021-05-03] MEDS: dexAMETHasone 10 MG/ML Vial 6 MG IV (10:41)
[2021-05-03] MEDS: hydroCHLOROthiazide 12.5mg 12.5 MG PO (10:41)
[2021-05-03] MEDS: Enoxaparin 30 MG/0.3 ML Syringe SC ×2 (10:41→20:56)
[2021-05-03 11:21] LABS: Bedside Glucose 145 mg/dL (70-110)
--- NOTE | 2021-05-03 12:55 | PCM.PN.HOSP ---
Subjective Subjective Patient is a 50-year-old gentleman unvaccinated against COVID-19 presented with progressive shortness of breath and fever and persistent cough. Diagnosed with acute hypoxic respiratory failure secondary to COVID-19 pneumonia Objective Data Objective Data Vital Signs: Vital Signs Temp Pulse Resp BP Pulse Ox 99.8 F H 113 H 20 H 133/80 H 92 05/03/21 10:35 05/03/21 10:35 05/03/21 10:35 05/03/21 10:35 05/03/21 10:35 Oxygen Flow Rate (L/min) 4 Oxygen Delivery Method Nasal Cannula Weight: 122.334 kg Body Mass Index (BMI) 37.8 Intake & Output: Intake and Output for Last 24 Hours 05/01/21 05/02/21 05/03/21 23:59 23:59 23:59 Intake Total 595 / 595 650 / 650 Balance 595 / 595 650 / 650 Lab / Micro Data Result Diagrams: 05/03/21 06:28 05/03/21 06:28 Labs: Laboratory Results - last 24 hr 05/02/21 17:25: POC Glucose 155 H 05/02/21 20:53: POC Glucose 260 H 05/03/21 06:28: WBC 5.6, RBC 6.19, Hgb 16.7 H, Hct 49.5, MCV 80.0, MCH 27.0, MCHC 33.7, RDW Std Deviation 40.1, RDW Coeff of Abdias 13.8, Plt Count 130 L, MPV 11.2, Immature Gran % (Auto) 0.500, Neut % (Auto) 67.9, Lymph % (Auto) 23.4, [place] % (Auto) 7.8, Eos % (Auto) 0.0, Baso % (Auto) 0.4, Absolute Neuts (auto) 3.8, Absolute Lymphs (auto) 1.31, Nucleated RBC % 0 05/03/21 06:28: Sodium 136, Potassium 4.2, Chloride 102, Carbon Dioxide 28.0, Anion Gap 6, BUN 15, Creatinine 0.84, Estim Creat Clear Calc 114.54, Est GFR (MDRD) Af Amer 126, Est GFR (MDRD) Non-Af 104, BUN/Creatinine Ratio 18.0, Glucose 141 H, Calcium 8.6, Total Bilirubin 0.50, AST 47 H, ALT 40, Alkaline Phosphatase 66, Total Protein 7.8, Albumin 3.2, Globulin 4.6 H, Albumin/Globulin Ratio 0.7 L 05/03/21 07:55: POC Glucose 122 H 05/03/21 11:11: POC Glucose 145 H Micro: Microbiology 05/02/21 16:04 Urine, Clean Catch Streptococcus pneumoniae Antigen (M - Final 05/02/21 16:04 Urine, Clean Catch Legionella Antigen - Final 05/02/21 14:35 Mucosa - Nose Respiratory Panel (PCR) - Final 05/02/21 09:25 Nasal Secretion SARS-CoV-2 Antigen (Rapid) - Final SARS-CoV-2 (COVID 19) Physical Exam Narrative GENERAL: cooperative HEENT: Atraumatic; EYES; Anicteric, Normal Conjunctiva NECK; supple, normal thyroid, RESPIRATORY: Diminished to auscultation CARDIOVASCULAR: Regular S1 S2, GI: soft, normoactive bowel sounds, : No Renal angle tenderness; EXTREMITIES: No edema, no clubbing, MUSCULOSKELETAL: no muscle waisting NEURO: Awake; no lateralizing signs. SKIN: No Rash PSYCH; Flat affect Assessment & Plan Assessment/Plan (1) JAY (obstructive sleep apnea): (2) Pneumonia due to severe acute respiratory syndrome coronavirus 2 (SARS-CoV-2): (3) Acute hypoxemic respiratory failure due to COVID-19: PLAN: Patient is a 50-year-old gentleman unvaccinated against COVID-19 presented with progressive shortness of breath and fever and persistent cough. Diagnosed with acute hypoxic respiratory failure secondary to COVID-19 pneumonia 1. Acute hypoxic respiratory failure ?Secondary to COVID-19 pneumonia. Patient has been admitted to regular nursing floor managed with remdesivir and Decadron in addition to supplemental oxygen titrated to keep saturation greater than 90. Also did encourage the use of incentive spirometry. Patient progress being monitored with continuous pulse oximetry 2. Diabetes mellitus type 2 ?Currently diet managed patient was placed on Accu-Cheks before meals and at bedtime with sliding scale coverage 3. Obstructive sleep apnea ?CPAP at night 4. Class II obesity with BMI of 37.6 ?Weight loss advised 5. Hypertension - Blood pressure controlled, home medications continued with dose adjustment as needed 6. DVT prophylaxis ?SC Lovenox Charges/Coding Visit Charges Inpatient E&M: 89053 Subs Hosp L3
[2021-05-03] MEDS: Insulin Lispro 100 UNIT/ML INSULN.PEN SC ×2 (16:25→20:56)
[2021-05-03 16:46] LABS: Bedside Glucose 217 mg/dL (70-110)
[2021-05-03 17:21] LABS: Bedside Glucose 142 mg/dL (70-110)
[2021-05-03 21:25] LABS: Bedside Glucose 224 mg/dL (70-110)
--- NOTE | 2021-05-03 22:35 | CPS ---
4 l/m bleed added to pt home unit
[2021-05-04] VITALS (7 sets, daily range): BP systolic 118–131; BP diastolic 70–80; PULSE 74–99; RESP 18–20; TEMP 36.8–37.1; O2SAT 84–97
[2021-05-04] MEDS: Insulin Lispro 100 UNIT/ML INSULN.PEN SC ×2 (06:06→11:29)
[2021-05-04 06:16] LABS: Bedside Glucose 158 mg/dL (70-110)
--- NOTE | 2021-05-04 07:48 | PCM.PN.HOSP ---
Subjective Subjective Patient seen still remains on supplemental oxygen currently on 4 L saturating at 93%. Plan is for patient to be assessed for possible discharge with a 6-minute walk. Goal is to keep oxygen saturation above 89% and below 6 L flow per minute. Patient did express the desire to undergo the 6-minute walk with a goal of being discharged Objective Data Objective Data Vital Signs: Vital Signs Temp Pulse Resp BP Pulse Ox 98.8 F 91 18 131/70 H 93 05/04/21 01:58 05/04/21 01:58 05/04/21 01:58 05/04/21 01:58 05/04/21 07:33 Oxygen Flow Rate (L/min) 4 Oxygen Delivery Method Nasal Cannula Weight: 122.515 kg Body Mass Index (BMI) 37.8 Intake & Output: Intake and Output for Last 24 Hours 05/02/21 05/03/21 05/04/21 23:59 23:59 23:59 Intake Total 595 / 595 1250 / 1250 Balance 595 / 595 1250 / 1250 Lab / Micro Data Result Diagrams: 05/04/21 07:25 05/04/21 07:25 Labs: Laboratory Results - last 24 hr 05/03/21 06:02: POC Glucose 142 H 05/03/21 07:55: POC Glucose 122 H 05/03/21 11:11: POC Glucose 145 H 05/03/21 16:20: POC Glucose 217 H 05/03/21 20:52: POC Glucose 224 H 05/04/21 06:06: POC Glucose 158 H Micro: Microbiology 05/02/21 16:04 Urine, Clean Catch Streptococcus pneumoniae Antigen (M - Final 05/02/21 16:04 Urine, Clean Catch Legionella Antigen - Final 05/02/21 14:35 Mucosa - Nose Respiratory Panel (PCR) - Final 05/02/21 09:25 Nasal Secretion SARS-CoV-2 Antigen (Rapid) - Final SARS-CoV-2 (COVID 19) Physical Exam Narrative GENERAL: cooperative HEENT: Atraumatic; EYES; Anicteric, Normal Conjunctiva NECK; supple, normal thyroid, RESPIRATORY: Diminished to auscultation CARDIOVASCULAR: Regular S1 S2, GI: soft, normoactive bowel sounds, : No Renal angle tenderness; EXTREMITIES: No edema, no clubbing, MUSCULOSKELETAL: no muscle waisting NEURO: Awake; no lateralizing signs. SKIN: No Rash PSYCH; Flat affect Assessment & Plan Assessment/Plan (1) JAY (obstructive sleep apnea): (2) Pneumonia due to severe acute respiratory syndrome coronavirus 2 (SARS-CoV-2): (3) Acute hypoxemic respiratory failure due to COVID-19: PLAN: Patient is a 50-year-old gentleman unvaccinated against COVID-19 presented with progressive shortness of breath and fever and persistent cough. Diagnosed with acute hypoxic respiratory failure secondary to COVID-19 pneumonia 1. Acute hypoxic respiratory failure ?Secondary to COVID-19 pneumonia. Patient has been admitted to regular nursing floor managed with remdesivir and Decadron in addition to supplemental oxygen titrated to keep saturation greater than 90. Also did encourage the use of incentive spirometry. Patient progress being monitored with continuous pulse oximetry -05/04/2021; Patient seen still remains on supplemental oxygen currently on 4 L saturating at 93%. Plan is for patient to be assessed for possible discharge with a 6-minute walk. Goal is to keep oxygen saturation above 89% and below 6 L flow per minute. Patient did express the desire to undergo the 6-minute walk with a goal of being discharge 2. Diabetes mellitus type 2 ?Currently diet managed patient was placed on Accu-Cheks before meals and at bedtime with sliding scale coverage 3. Obstructive sleep apnea ?CPAP at night 4. Class II obesity with BMI of 37.6 ?Weight loss advised 5. Hypertension - Blood pressure controlled, home medications continued with dose adjustment as needed 6. DVT prophylaxis ?SC Lovenox Charges/Coding Visit Charges Inpatient E&M: 85813 Subs Hosp L2
[2021-05-04 08:01] LABS: Absolute Lymphocyte Count 1.33 X10^3/uL (0.83-4.51); Absolute Neutrophil Count 3.4 X10^3/uL (2.0-7.7); Basophil# 0.02 X10^3/uL; Basophil% 0.4 % (0-1); Hematocrit 45.9 % (40-54); Hemoglobin 15.2 g/dL (13.0-16.5); Lymphocyte # 1.33 X10^3/ul (0.83-4.51); Lymphocyte % 25.1 % (19-41); Mean Corp Hgb Conc 33.1 g/dL (32-36); Mean Corpuscular Hgb 26.7 pg (27.0-32.0); Mean Corpuscular Volume 80.7 fL (80-94); Mean Platelet Vol. 11.3 fl (6.2-12.0); Monocyte# 0.48 X10^3/uL; Monocyte% 9.1 % (0-10); NRBC Flagged by Analyzer 0 % (0-5); Neutrophil # 3.44 X10^3/uL (2.7-7.7); Neutrophil % 64.8 % (47-70); Platelet Count 154 K/mm3 (150-450); RBC Distribution Width CV 13.7 % (11.6-14.6); RBC Distribution Width SD 40.2 fl (35.1-43.9); Red Blood Count 5.69 M/mm3 (4.6-6.2); White Blood Count 5.3 K/mm3 (4.4-11.0)
[2021-05-04 08:36] LABS: ALB/GLOB Ratio 0.7 RATIO (0.9-2.4); AST(SGOT) 49 U/L (15-37); Alanine Aminotransfer ALT/SGPT 37 U/L (16-61); Albumin, Serum 2.9 g/dL (3.2-5.0); Alkaline Phosphatase 59 U/L (45-117); Anion Gap 8 (5-15); BUN 23 mg/dL (7-18); BUN/Creat Ratio 31.4 RATIO (10-20); Calcium,Total 8.7 mg/dL (8.5-10.1); Chloride 102 mmol/L (98-107); Creatinine, Serum 0.73 mg/dL (0.70-1.30); EST Glomerular Filtration Rate 121 mL/min (>60); Est Glom Filt Rate - Afr Amer 147 mL/min (>60); Globulin 4.3 g/dL (2.2-4.2); Glucose 141 mg/dL (74-106); Magnesium 2.3 mg/dL (1.6-2.6); Potassium 3.7 mmol/L (3.5-5.1); Protein, Total 7.2 g/dL (6.4-8.2); Sodium Level 135 mmol/L (136-145)
[2021-05-04] MEDS: Psyllium 1 PACKET PO (10:13)
[2021-05-04] MEDS: Enoxaparin 30 MG/0.3 ML Syringe SC (10:13)
[2021-05-04] MEDS: Lisinopril 10 MG Tablet PO (10:14)
[2021-05-04] MEDS: dexAMETHasone 10 MG/ML Vial 6 MG IV (10:14)
[2021-05-04] MEDS: hydroCHLOROthiazide 12.5mg 12.5 MG PO (10:14)
[2021-05-04 11:36] LABS: Bedside Glucose 181 mg/dL (70-110)
--- NOTE | 2021-05-04 13:12 | PCM.DC.SUM ---
Providers Date of Admission: 05/02/21 Primary Care Physician: Dr. Lyle Grady MD Reason For Visit: RESP FAILURE/COVID Diagnosis Discharge Diagnosis (1) JAY (obstructive sleep apnea): Status: Acute Code(s): G47.33 - Obstructive sleep apnea (adult) (pediatric) (2) Pneumonia due to severe acute respiratory syndrome coronavirus 2 (SARS-CoV-2): Status: Acute Code(s): U07.1 - COVID-19; J12.82 - Pneumonia due to coronavirus disease 2019 (3) Acute hypoxemic respiratory failure due to COVID-19: Status: Acute Code(s): U07.1 - COVID-19; J96.01 - Acute respiratory failure with hypoxia Medications at Discharge Home Medications lisinopril-hydrochlorothiazide 1 tab DAILY 05/02/21 cefdinir 300 mg PO BID #10 cap 05/04/21 dexamethasone [Decadron] 6 mg PO DAILY #7 tab 05/04/21 rivaroxaban [Xarelto] 10 mg PO DAILY #35 tab 05/04/21 Hospital Course Summary of Care Provided Minutes Spent on Discharge: 35 Hospital Course: Patient is a 50-year-old gentleman unvaccinated against COVID-19 presented with progressive shortness of breath and fever and persistent cough. Diagnosed with acute hypoxic respiratory failure secondary to COVID-19 pneumonia 1. Acute hypoxic respiratory failure ?Secondary to COVID-19 pneumonia. Patient has been admitted to regular nursing floor managed with remdesivir and Decadron in addition to supplemental oxygen titrated to keep saturation greater than 90. Also did encourage the use of incentive spirometry. Patient progress being monitored with continuous pulse oximetry -05/04/2021; Patient seen still remains on supplemental oxygen currently on 4 L saturating at 93%. Plan is for patient to be assessed for possible discharge with a 6-minute walk. Goal is to keep oxygen saturation above 89% and below 6 L flow per minute. Patient did express the desire to undergo the 6-minute walk with a goal of being discharge -Patient was assessed for oxygen he did require up to 4 L with ambulation. Prescription was written for oxygen on discharge. He will need portability since he is active both at home as well as in the community. Prescription was also written for cefdinir as well as Decadron on discharge. Patient was instructed to return to the ED if his respiratory status deteriorated. 2. Diabetes mellitus type 2 ?Currently diet managed patient was placed on Accu-Cheks before meals and at bedtime with sliding scale coverage 3. Obstructive sleep apnea ?CPAP at night 4. Class II obesity with BMI of 37.6 ?Weight loss advised 5. Hypertension - Blood pressure controlled, home medications continued with dose adjustment as needed 6. DVT prophylaxis ?SC Lovenox -Prescription written for Xarelto 10 mg p.o. daily for 35 days Physical Exam Narrative GENERAL: cooperative HEENT: Atraumatic; EYES; Anicteric, Normal Conjunctiva NECK; supple, normal thyroid, RESPIRATORY: Diminished to auscultation CARDIOVASCULAR: Regular S1 S2, GI: soft, normoactive bowel sounds, : No Renal angle tenderness; EXTREMITIES: No edema, no clubbing, MUSCULOSKELETAL: no muscle waisting NEURO: Awake; no lateralizing signs. SKIN: No Rash PSYCH; Flat affect Weight / BMI Weight Weight: 122.515 kg Body Mass Index (BMI) 37.8 ABG / Lab / Microbiology Data Result Diagrams: 05/04/21 07:25 05/04/21 07:25 Laboratory: Laboratory Results - last 24 hr 05/03/21 06:02: POC Glucose 142 H 05/03/21 16:20: POC Glucose 217 H 05/03/21 20:52: POC Glucose 224 H 05/04/21 06:06: POC Glucose 158 H 05/04/21 07:25: WBC 5.3, RBC 5.69, Hgb 15.2, Hct 45.9, MCV 80.7, MCH 26.7 L, MCHC 33.1, RDW Std Deviation 40.2, RDW Coeff of Abdias 13.7, Plt Count 154, MPV 11.3, Immature Gran % (Auto) 0.600, Neut % (Auto) 64.8, Lymph % (Auto) 25.1, [place] % (Auto) 9.1, Eos % (Auto) 0.0, Baso % (Auto) 0.4, Absolute Neuts (auto) 3.4, Absolute Lymphs (auto) 1.33, Nucleated RBC % 0 05/04/21 07:25: Sodium 135 L, Potassium 3.7, Chloride 102, Carbon Dioxide 25.0, Anion Gap 8, BUN 23 H, Creatinine 0.73, Estim Creat Clear Calc 131.80, Est GFR (MDRD) Af Amer 147, Est GFR (MDRD) Non-Af 121, BUN/Creatinine Ratio 31.4 H, Glucose 141 H, Calcium 8.7, Magnesium 2.3, Total Bilirubin 0.50, AST 49 H, ALT 37, Alkaline Phosphatase 59, Total Protein 7.2, Albumin 2.9 L, Globulin 4.3 H, Albumin/Globulin Ratio 0.7 L 05/04/21 11:28: POC Glucose 181 H Microbiology: Microbiology 05/02/21 09:34 Blood Culture (Wb) - Left Forearm Blood Culture - Preliminary No growth in 48 hours. 05/02/21 09:20 Blood Culture (Wb) - Anticubital Right Blood Culture - Preliminary No growth in 48 hours. 05/02/21 16:04 Urine, Clean Catch Streptococcus pneumoniae Antigen (M - Final 05/02/21 16:04 Urine, Clean Catch Legionella Antigen - Final 05/02/21 14:35 Mucosa - Nose Respiratory Panel (PCR) - Final 05/02/21 09:25 Nasal Secretion SARS-CoV-2 Antigen (Rapid) - Final SARS-CoV-2 (COVID 19) D/C Instructions Discharge Diet: No restrictions Discharge Activity: Return to Normal Activity Call your doctor if you observe: Fever of 101 or Higher, Shortness of breath, Fainting spells and Chest pain Meaningful Use Info Meaningful Use Diagnoses (Choose all that apply): None applicable Discharge Plan Admission Admit Date/Time: 05/02/21 12:10 Attending Provider: Richard Breen Primary Care Provider: Lyle Grady Instructions Patient Instructions: Coronavirus Disease 2019 (COVID-19): Overview, Coronavirus Disease 2019 (COVID-19): Caring for Yourself or Others Discharge Orders/Prescriptions Prescriptions: New cefdinir 300 mg capsule 300 mg PO BID Qty: 10 RF: 0 dexamethasone [Decadron] 6 mg tablet 6 mg PO DAILY Qty: 7 RF: 0 Xarelto 10 mg tablet 10 mg PO DAILY Qty: 35 RF: 0 Continued lisinopril-hydrochlorothiazide 10-12.5 mg tablet 1 tab DAILY RF: 0 Referrals / Follow Up: Lyle Grady MD [Primary Care Provider] - Within 2 Weeks Disposition Disposition (needs filled in before D/C Order can be placed): Home, Self Care Charges/Coding Visit Charges Inpatient E&M: 04988 Disch Hosp
--- NOTE | 2021-05-04 14:01 | CASEMGMT ---
Pt qualifies for home O2, [place] [facility] [facility], spoke with Julee she is aware and portable tank taken from stock.
== END 2021-05-04 20:30 | disposition home or self-care (01) | DRG 177 ==
LOC: ED 12:01 → MS3 12:43
PROVIDERS: Admitting Provider Internal Medicine; Emergency Provider Emergency Medicine; PCP Family Medicine; Visit Provider Internal Medicine
DX: U07.1 COVID-19 (principal); J12.82 Pneumonia due to coronavirus disease 2019; J96.01 Acute respiratory failure with hypoxia; I10 Essential (primary) hypertension; E11.9 Type 2 diabetes mellitus without complications; G47.33 Obstructive sleep apnea (adult) (pediatric); F17.210 Nicotine dependence, cigarettes, uncomplicated; E66.9 Obesity, unspecified; Z68.37 Body mass index [BMI] 37.0-37.9, adult; Z79.899 Other long term (current) drug therapy
CPT/HCPCS: 36415; 71045; 71275; 80053; 82550; 82962; 83605; 83615; 83735; 83880; 84145; 84484; 85025; 85379; 85384; 86140; 87040; 87426; 87449; 87633; 93005; 94762; 97802; 99251; 99285; 99406; J7050; Q9967; A4216; G0463; J0248